=== PATIENT | female | born 1970 | race Caucasian/White ===

== ENCOUNTER → 2023-03-30 15:50 | Outpatient (REF) | payer BC, SELFPAY | LOC: WDC 15:50 | PROVIDERS: ATTENDING PHYSICIAN Obstetrics & Gynecology; FAMILY PHYSICIAN Family Medicine | DX: Z12.31 Encounter for screening mammogram for malignant neoplasm of breast (principal) | CPT/HCPCS: 77063; 77067 ==

== ENCOUNTER 2023-08-19 11:37 | Emergency (ER) | payer BC, SELFPAY ==
[2023-08-19] VITALS (7 sets, daily range): BP systolic 92–113; BP diastolic 66–80
[2023-08-19 12:00] LABS: % Basophils 0.3 % (0-2); % Immature Granulocytes 0.3 % (0-0.5); % Lymphocytes 10.4 % (20.5-51.1); % Monocytes 11.9 % (1.7-9.3); % Neutrophils 77.1 % (42.2-75.2); Absolute Lymphocytes 1.1 10^3/uL (1.2-3.4); Absolute Monocytes 1.2 10^3/uL (0.1-0.6); Absolute Neutrophils 7.9 10^3/uL (1.4-6.5); Hematocrit 37.7 % (37.0-47.0); Hemoglobin 13.5 g/dL (12.0-16.0); Mean Corp Hgb Conc. 35.8 g/dL (33.0-37.0); Mean Corpuscular Hgb 32.4 pg (27.0-31.0); Mean Corpuscular Volume 90.4 fL (81.0-99.0); Mean Platelet Volume 9.4 fL (7.4-10.4); Nucleated Red Blood Cells % 0 %; Platelet Count 253 10^3/uL (130-400); Red Blood Cell Count 4.17 10^6/uL (4.20-5.40); Red Cell Dist. Width 11.8 % (11.5-14.5); White Blood Cell Count 10.2 10^3/uL (4.8-10.8)
[2023-08-19 12:09] LABS: APTT 30.6 Sec (23.4-35.0)
[2023-08-19 12:13] LABS: ALT (SGPT) 24 U/L (0-35); AST (SGOT) 25 U/L (14-36); Albumin 4.2 g/dl (3.5-5.0); Alkaline Phosphatase 106 U/L (38-126); Blood Urea Nitrogen 10 mg/dl (7-17); Calcium 10.2 mg/dl (8.4-10.2); Carbon Dioxide 25 mmol/L (22-30); Chloride 104 mmol/L (98-107); Glucose 149 mg/dl (70-99); Potassium 3.5 mmol/L (3.5-5.1); Sodium 138 mmol/L (135-145); Total Bilirubin 0.4 mg/dl (0.2-1.3); Total Protein 7.3 g/dl (6.3-8.2); eGFR > 60.00
[2023-08-19 12:25] LABS: Troponin I < 0.012 ng/ml
--- NOTE | 2023-08-19 13:19 | ED.GENMED ---
History of Present Illness
<Zabrina Russo PA-C - Last Filed: 08/19/23 18:55>
General
Chief Complaint: Fatigue
Source: patient and spouse
Exam Limitations: none
Time Seen by Provider: 08/19/23 12:59
Nursing documentation reviewed up to this point in time: agreed with
History of Present Illness
History of Present Illness:
Patient is a 53-year-old female with history hypothyroidism presenting to the emergency department for the evaluation of multiple complaints. Patient states that she was sick with COVID, tested positive on 08/09. She states that she was
experiencing headache, sore throat, body aches, fatigue. She started to feel better at this week and tested negative for COVID this past Tuesday. While she was at work on Tuesday however she started to feel extremely fatigued and some mild chest
discomfort. She states that over the past few days she is been very weak, fatigue and been suffering from a headache along with bodyaches. She also endorses pressure in her mid chest worse with deep inspiration. She has not noticed an exertional
component to chest pain.
Patient does deny any fevers or chills, nausea, vomiting, or abdominal pain. Patient states that she has not had a menstrual period in a year, although she has had some very mild spotting over the past few days. She has already called her SENIOR DATA DEVELOPER
to schedule an appointment.
Past History
<Zabrina Russo PA-C - Last Filed: 08/19/23 18:55>
Past History
ED Past Medical History: Asthma and Hypothyroidism
ED Past Surgical History: None
Social History
Tobacco: Non-smoker
Alcohol: Occasional
Personal:
Living: with family
Review of Systems
<Zabrina Russo PA-C - Last Filed: 08/19/23 18:55>
Review of Systems
Allergies reviewed?: Yes
All Other Systems: ROS reviewed and negative except as documented in HPI and ROS
Phy Exam
<Zabrina Russo PA-C - Last Filed: 08/19/23 18:55>
Physical Exam
Physical Exam:
Vitals: Patient's vital signs are stable. Afebrile
General: Patient is mildly uncomfortable appearing due to headache, nontoxic appearing.
Skin: Warm and dry, no rashes or lesions
Head: Normocephalic, atraumatic
Eyes: Sclera nonicteric. EOMs intact. No nystagmus. PERRL
Throat: Posterior pharynx mildly erythematous with no tonsillar edema or exudates. Uvula midline protecting airway
Neck: Normal ROM, no cervical spine tenderness, no meningismus. No midline spinal tenderness
Cardiac: Regular rate and rhythm, no murmurs.
Pulm: Normal respiratory effort. O2 saturation 99 on room air. No evidence of respiratory distress. Lungs clear, no wheezing.
Abdomen: Abdomen soft. No abdominal tenderness.
Extremities: No evidence of cyanosis or edema. Great distal pulses. No erythema, warmth, edema of bilateral calves
Neuro: AAOx3. CN II-XII intact. No focal neurologic deficits.
Psychiatric: Normal affect.
Scores
<Zabrina Russo PA-C - Last Filed: 08/19/23 18:55>
PE Wells Score
Symptoms of DVT: No
No alternative diagnosis better explains the illness: No
Tachycardia with pulse > 100: No
Course
<Zabrina Russo PA-C - Last Filed: 08/19/23 18:55>
Orders/Labs/Results
Orders:
Orders
08/19/23 11:43
Electrocardiogram (*1) Urgent
Reason for Study: Chest Pain
EKG- Treatment ONCE
CR Chest - 2 Views Urgent
Comment:
Reason For Exam: SOB
08/19/23 11:50
Complete Blood Count/With Diff Urgent
Comprehensive Metabolic Panel Urgent
D-Dimer Urgent
Comment: ADD ON
Monotest Urgent
Comment: ADD ON
PTT Urgent
TSH Reflex To Free T4 Urgent
Comment: ADD ON
Troponin I Urgent
08/19/23 13:28
Add On- LAB Urgent
Tests Added?: monospot, d-dimer, tsh w/ reflex to T4
0.9% Sodium Chloride 1000 ml [Nss] 1,000 ml IV BOLUS
Ketorolac [Toradol] 15 mg IV NOW STA
08/19/23 14:12
CT Chest Pe Study Urgent
Comment:
Reason For Exam: chest discomfort, elevated dimer
08/19/23 16:46
Add On- LAB Urgent
Tests Added?: serum hcg
08/19/23 17:07
Amoxicillin 875 mg/Clav 125 mg [Augmentin 875 mg/125 mg] 1 tablet PO NOW STA
Abnormal Lab Results
08/19/23
11:50
RBC 4.17 L 10^6/uL
(4.20-5.40)
MCH 32.4 H pg
(27.0-31.0)
Absolute Neuts (auto) 7.9 H 10^3/uL
(1.4-6.5)
Absolute Lymphs (auto) 1.1 L 10^3/uL
(1.2-3.4)
Absolute Monos (auto) 1.2 H 10^3/uL
(0.1-0.6)
Neutrophils % 77.1 H %
(42.2-75.2)
Lymphocytes % 10.4 L %
(20.5-51.1)
Monocytes % 11.9 H %
(1.7-9.3)
D-Dimer 0.67 H ug/mlFEU
(0.00-0.50)
Glucose 149 H mg/dl
(70-99)
08/19/23 11:50
08/19/23 11:50
Vital Signs
Initial and Last Documented VS:
Initial Vital Signs
Temp Pulse Resp BP Pulse Ox
98.7 F 95 18 113/80 99
08/19/23 11:39 08/19/23 11:39 08/19/23 11:39 08/19/23 11:39 08/19/23 11:39
Last Documented Vital Signs
Temp Pulse Resp BP Pulse Ox
98.2 F 86 14 110/77 100
08/19/23 17:27 08/19/23 17:15 08/19/23 17:15 08/19/23 17:00 08/19/23 17:15
<Albin Nolen, DO - Last Filed: 08/19/23 20:10>
Orders/Labs/Results
Orders:
Orders
08/19/23 11:43
Electrocardiogram (*1) Urgent
Reason for Study: Chest Pain
EKG- Treatment ONCE
CR Chest - 2 Views Urgent
Comment:
Reason For Exam: SOB
08/19/23 11:50
Complete Blood Count/With Diff Urgent
Comprehensive Metabolic Panel Urgent
D-Dimer Urgent
Comment: ADD ON
Monotest Urgent
Comment: ADD ON
PTT Urgent
TSH Reflex To Free T4 Urgent
Comment: ADD ON
Troponin I Urgent
08/19/23 13:28
Add On- LAB Urgent
Tests Added?: monospot, d-dimer, tsh w/ reflex to T4
0.9% Sodium Chloride 1000 ml [Nss] 1,000 ml IV BOLUS
Ketorolac [Toradol] 15 mg IV NOW STA
08/19/23 14:12
CT Chest Pe Study Urgent
Comment:
Reason For Exam: chest discomfort, elevated dimer
08/19/23 16:46
Add On- LAB Urgent
Tests Added?: serum hcg
08/19/23 17:07
Amoxicillin 875 mg/Clav 125 mg [Augmentin 875 mg/125 mg] 1 tablet PO NOW STA
Abnormal Lab Results
08/19/23
11:50
RBC 4.17 L 10^6/uL
(4.20-5.40)
MCH 32.4 H pg
(27.0-31.0)
Absolute Neuts (auto) 7.9 H 10^3/uL
(1.4-6.5)
Absolute Lymphs (auto) 1.1 L 10^3/uL
(1.2-3.4)
Absolute Monos (auto) 1.2 H 10^3/uL
(0.1-0.6)
Neutrophils % 77.1 H %
(42.2-75.2)
Lymphocytes % 10.4 L %
(20.5-51.1)
Monocytes % 11.9 H %
(1.7-9.3)
D-Dimer 0.67 H ug/mlFEU
(0.00-0.50)
Glucose 149 H mg/dl
(70-99)
08/19/23 11:50
08/19/23 11:50
Vital Signs
Initial and Last Documented VS:
Initial Vital Signs
Temp Pulse Resp BP Pulse Ox
98.7 F 95 18 113/80 99
08/19/23 11:39 08/19/23 11:39 08/19/23 11:39 08/19/23 11:39 08/19/23 11:39
Last Documented Vital Signs
Temp Pulse Resp BP Pulse Ox
98.2 F 86 14 110/77 100
08/19/23 17:27 08/19/23 17:15 08/19/23 17:15 08/19/23 17:00 08/19/23 17:15
<Zabrina Russo PA-C - Last Filed: 08/19/23 18:55>
MDM/Problems Addressed
Differential Diagnosis Includes:
Not limited to: Viral illness, mononucleosis, sinusitis migraine, bronchitis, pneumonia, PE
MDM/Problems Addressed:
Patient is a 53-year-old female with recent COVID presenting with lingering headache, body aches, fatigue with associated chest pressure for the past few days. Also does mention vaginal spotting getting yesterday although she reports she has been
without a period for the past year. Vital signs are stable. Patient is afebrile. Physical exam as above. Patient in some discomfort due to headache, although nontoxic-appearing. No meningeal signs. Heart regular rate and rhythm. Lungs
essentially clear bilaterally. Patient is in no apparent respiratory distress with an oxygen saturation of 99 on room air. She is not tachypneic. Labs were obtained which show no clinically significant abnormalities. Hemoglobin is normal chest
x-ray shows no acute cardiopulmonary disease. Will add mono, TSH. Will check D-dimer given recent COVID and pleuritic chest discomfort. Will give Toradol, fluids for headache. Will monitor closely and reassess.
Tyrrell negative. TSH within normal range. Unfortunately�D-dimer was minimally elevated 0.67. Will proceed with CTA chest. Patient is somewhat more improved and sleeping comfortably following Toradol and fluids.
Fortunately CT chest showed no evidence of pulmonary embolism although a mild right lower lobe pneumonia was found. Given persistence of symptoms�will treat with antibiotics. Patient is afebrile with no leukocytosis and in no apparent respiratory
distress�she is fit for outpatient management. Return precautions discussed at length. Patient will follow-up with primary care. Patient has appointment scheduled with SENIOR DATA DEVELOPER.
Chronic conditions affecting care:
N/A
Acute Exacerbation and/or Progression of Chronic Illness:
N/A
<Zabrina Russo PA-C - Last Filed: 08/19/23 18:55>
*Radiology
Radiology exam reviewed: preliminary read by ED provider and radiology read reviewed
*Pulse Oximetry
Patient hypoxic: no
*EKG
Interpreted by ED Provider?: Yes
EKG Intrepretation Date: 08/19/23
Interpretation: normal
Comparison EKG: no changes
Heart Rate: 91
Rate: normal
Rhythm: sinus
QRS Pattern: normal QRS
Ischemia: no ischemia
*Chief Hydroelectric Station Operator Interpretation
Rate: normal
Interpretation: normal
Heart Rate: 84
Rhythm: sinus
*Critical Care Note
Total Time (30-74mins, 75-104mins- exclusive of procedures): Not Applicable
ED Attending Note
<Zabrina Russo PA-C - Last Filed: 08/19/23 18:55>
-
Portions of this chart may have been created with voice recognition software.� Occasional wrong word or��sound alike� substitutions may have occurred due to the inherent limitations of voice recognition software.
<Albin Nolen DO - Last Filed: 08/19/23 20:10>
ED Attending Note
Patient seen and examined by attending physician: Yes
I performed the substantive portion of visit, reviewed & personally made and approve the management plan that is documented in note by myself or TONI.: Yes
ED Attending Note:
53-year-old female who was doing well but started feel more weak and fatigued. Agree with above. CTA negative for pulmonary embolism. Cover with antibiotics. Outpatient follow-up
Discharge Plan
Departure
Patient Disposition: Home (Routine Discharge)
Date of Disposition: 08/19/23
Time of Disposition: 16:58
Patient with high blood pressure during this ER visit?: No
Discharge Problem:
Right lower lobe pneumonia, Headache
Instructions: Community-Acquired Pneumonia, Adult (DC), Headache, Adult ED
Prescriptions:
New
amoxicillin-pot clavulanate 875-125 mg tablet
1 tab PO BID 5 Days Qty: 10 0RF
No Action
cyclobenzaprine 10 MG tablet
5 mg PO TID
levothyroxine 75 MCG tablet
75 mcg PO DAILY
citalopram 20 MG tablet
20 mg PO DAILY
hydrocodone-acetaminophen [Vicodin] 1 EACH tablet
1 ea PO Q6HPRN PRN (Reason: pain)
norethindrone-e.estradiol-iron [Lo Loestrin Fe] 1 EACH tablet
1 ea PO DAILY
prednisone 10 MG tablet
10 mg PO .TAPER Qty: 30 0RF
Rx Instructions:
Take 40mg daily x3days, 30mg daily x3days,
20mg daily x3days, 10mg daily x3days.
diazepam 5 MG tablet
5 mg PO TIDPRN PRN (Reason: spasm) Qty: 9 0RF
ondansetron 4 MG tablet,disintegrating
4 mg PO TIDPRN PRN (Reason: nausea/vomiting) Qty: 8 0RF
Referrals:
Frida Chang NP [Family Provider] -
Activity Restrictions/Additional Instructions:
RETURN TO THE EMERGENCY DEPARTMENT WITH FEVERS, CHILLS, CHEST PAIN, SHORTNESS OF BREATH, SEVERE HEADACHE/NECK PAIN, WORSENING IN CURRENT SYMPTOMS, OR ANY OTHER CONCERNS
-A prescription has been sent to your pharmacy. You should take this twice a day for the next 5 days. It is important stay well-hydrated. You can take Tylenol and/or Motrin as needed for headache. Is very important to monitor your symptoms
closely return to the emergency department with any new symptoms or acute worsening.
-You should follow-up with both your primary care provider and your SENIOR DATA DEVELOPER in about a week to ensure symptoms are improving.
Interventions
Interventions:
*Risk Screen - Suicide Last Done: 08/19/23 11:39
*General Assessment Last Done: 08/19/23 11:39
*Neglect/Abuse Screening Last Done: 08/19/23 11:39
ED- Fall Risk Assessment Last Done: 08/19/23 12:45
*ED COVID-19 Vaccine History Last Done: 08/19/23 12:45
*Nursing Disposition Last Done: 08/19/23 17:28
Discharge Date and Time
Discharge Date/Time: 08/19/23 17:29
Print Language: SLOVAK
[2023-08-19] MEDS: TORADOL 15 MG IV (13:43)
[2023-08-19] MEDS: NSS 1000 IV (13:44)
[2023-08-19 13:55] LABS: D-Dimer 0.67 ug/mlFEU (0.00-0.50)
[2023-08-19 14:50] LABS: Monotest Negative (Negative)
[2023-08-19 15:05] LABS: TSH Reflex To Free T4 1.26 uIU/ml (0.47-4.68)
[2023-08-19] MEDS: AUGMENTIN 875 MG/125 MG 1 TABLET PO (17:12)
== END 2023-08-19 17:29 | disposition home or self-care (01) ==
LOC: EMR 11:37
PROVIDERS: Emergency Medicine; EMERGENCY PHYSICIAN Emergency Medicine; FAMILY PHYSICIAN Nurse Practitioner Family
DX: J18.9 Pneumonia, unspecified organism (principal); R51.9 Headache, unspecified; R53.83 Other fatigue; R07.89 Other chest pain; R53.1 Weakness; N93.9 Abnormal uterine and vaginal bleeding, unspecified; E03.9 Hypothyroidism, unspecified; Z86.16 Personal history of COVID-19
CPT/HCPCS: 99285; 96361; 96374; 71046; 71275; 80053; 84443; 84484; 85025; 85379; 85730; 86308; 93005; Q9967

== ENCOUNTER 2023-08-22 16:07 | Inpatient (IN) | payer BC, SELFPAY ==
[2023-08-22] VITALS (26 sets, daily range): BP systolic 81–123; BP diastolic 50–84
[2023-08-22] MEDS: TYLENOL 650 MG PO ×3 (11:36→23:46)
[2023-08-22 11:45] LABS: % Basophils 0.3 % (0-2); % Eosinophils 0.2 % (0-6); % Immature Granulocytes 0.4 % (0-0.5); % Lymphocytes 8.5 % (20.5-51.1); % Monocytes 9.4 % (1.7-9.3); % Neutrophils 81.2 % (42.2-75.2); Absolute Lymphocytes 0.8 10^3/uL (1.2-3.4); Absolute Monocytes 0.9 10^3/uL (0.1-0.6); Absolute Neutrophils 7.8 10^3/uL (1.4-6.5); Hemoglobin 13.3 g/dL (12.0-16.0); Mean Corp Hgb Conc. 35.9 g/dL (33.0-37.0); Mean Corpuscular Hgb 31.9 pg (27.0-31.0); Mean Corpuscular Volume 88.7 fL (81.0-99.0); Mean Platelet Volume 9.3 fL (7.4-10.4); Nucleated Red Blood Cells % 0 %; Platelet Count 291 10^3/uL (130-400); Red Blood Cell Count 4.17 10^6/uL (4.20-5.40); Red Cell Dist. Width 11.7 % (11.5-14.5); White Blood Cell Count 9.6 10^3/uL (4.8-10.8)
[2023-08-22 11:57] LABS: Lactic Acid 1.1 mmol/L (0.7-2.0)
[2023-08-22 12:17] LABS: ALT (SGPT) 27 U/L (0-35); AST (SGOT) 25 U/L (14-36); Albumin 4.2 g/dl (3.5-5.0); Alkaline Phosphatase 148 U/L (38-126); Blood Urea Nitrogen 8 mg/dl (7-17); Calcium 10.4 mg/dl (8.4-10.2); Carbon Dioxide 23 mmol/L (22-30); Chloride 104 mmol/L (98-107); Potassium 3.9 mmol/L (3.5-5.1); Sodium 138 mmol/L (135-145); Total Bilirubin 0.5 mg/dl (0.2-1.3); Total Protein 7.4 g/dl (6.3-8.2); eGFR > 60.00
[2023-08-22] MEDS: ROCEPHIN 1000 MG IV (12:57)
[2023-08-22] MEDS: DUONEB 3 ML INH (12:57)
[2023-08-22] MEDS: TORADOL 30 MG IV (12:57)
[2023-08-22] MEDS: NSS 2000 IV (12:57)
--- NOTE | 2023-08-22 13:03 | ED.GENMED ---
Addendum entered and electronically signed by Billy Chang DO 08/22/23 14:43:
Update, after 2 L of fluid blood pressure in the 80s to 90s normal mental status cultures have been sent apparently none were sent few days ago when she was here, will give third liter of fluid, consideration for pressors and/or broadening her
antibiotics
Original Note:
History of Present Illness
General
Chief Complaint: Breathing Problem
Source: patient, records and spouse
Exam Limitations: none
Time Seen by Provider: 08/22/23 12:31
Nursing documentation reviewed up to this point in time: agreed with
History of Present Illness
History of Present Illness:
53-year-old female recently seen in the ER with multiple complaints, ultimately diagnosed with pneumonia treated with Augmentin had low-grade fevers at that time took 5 or 6 doses through the weekend she is actually feeling worse fever chills body
aches shortness of breath cough
Whole family had COVID patient initially tested negative then positive but quickly recovered
Past History
Past History
ED Past Medical History: Asthma and Hypothyroidism
ED Past Surgical History: None
Social History
Tobacco: Non-smoker
Alcohol: Occasional
Personal:
Living: with family
Review of Systems
Review of Systems
All Other Systems: ROS reviewed and negative except as documented in HPI and ROS
Constitutional: Reports fever, fatigue and chills
Respiratory: Reports cough and trouble breathing
Cardiac: Reports no symptoms
ABD/GI: Reports no symptoms
: Reports no symptoms
Musculoskeletal: Reports muscle stiffness
Skin: Reports no symptoms
Neurological: Reports dizzy and weakness
Psychiatric: Reports no symptoms
Phy Exam
Physical Exam
Physical Exam:
Physical Exam
General: Febrile female mild to moderate distress
Neck: Dry lips
Heart: Tachycardic
Lungs: Rhonchi left greater than right
Abdomen: Not tender
Neuro: alert and oriented. no focal neurological deficits
Skin: no rash
Psychiatric: well kept. interactive and cooperative
Extremities: no edema. no calf tenderness.
Scores
Heart Failure Risk
Heart Failure Risk Score: Not Applicable
Course
Orders/Labs/Results
Orders:
Orders
08/22/23 11:29
Complete Blood Count/With Diff Urgent
Comprehensive Metabolic Panel Urgent
Lactic Acid Urgent
Blood Culture Urgent
JAZZY Source: Blood/Venous
Specimen Description:
08/22/23 11:31
Blood Culture Urgent
JAZZY Source: Blood/Venous
Specimen Description:
08/22/23 11:34
Acetaminophen [Tylenol] 650 mg .ROUTE .STK-MED ONE
08/22/23 11:36
Acetaminophen [Tylenol] 650 mg PO NOW STA
08/22/23 11:40
CR Chest - 2 Views Urgent
Comment:
Reason For Exam: sob fever
08/22/23 12:39
CefTRIAXone [Rocephin] 1,000 mg IV NOW STA
Ketorolac [Toradol] 30 mg IV NOW STA
08/22/23 12:40
0.9% Sodium Chloride 1000 ml [Nss] 2,000 ml IV BOLUS
08/22/23 12:41
Ipratropium/Albuterol Sulfate [Duoneb] 3 ml INH R NOW STA
08/22/23 12:49
Sterile Water [Sterile Water For Injection] 10 ml .ROUTE .STK-MED ONE
08/22/23 12:51
Sterile Water [Sterile Water For Injection] 10 ml .ROUTE .STK-MED ONE
08/22/23 12:55
COVID-19 Antigen Urgent
Source: Nasal Swab
Influenza A+B Rapid Molecular Urgent
JAZZY Source: Nasal Swab
Specimen Description:
08/22/23 13:08
Electrocardiogram (*1) Urgent
Reason for Study: Shortness of Breath
EKG- Treatment ONCE
Abnormal Lab Results
08/22/23
11:29
RBC 4.17 L 10^6/uL
(4.20-5.40)
MCH 31.9 H pg
(27.0-31.0)
Absolute Neuts (auto) 7.8 H 10^3/uL
(1.4-6.5)
Absolute Lymphs (auto) 0.8 L 10^3/uL
(1.2-3.4)
Absolute Monos (auto) 0.9 H 10^3/uL
(0.1-0.6)
Neutrophils % 81.2 H %
(42.2-75.2)
Lymphocytes % 8.5 L %
(20.5-51.1)
Monocytes % 9.4 H %
(1.7-9.3)
Glucose 112 H mg/dl
(70-99)
Calcium 10.4 H mg/dl
(8.4-10.2)
Alkaline Phosphatase 148 H U/L
(38-126)
08/22/23 11:29
08/22/23 11:29
Vital Signs
Initial and Last Documented VS:
Initial Vital Signs
Temp Pulse Resp BP Pulse Ox
102.9 F H 107 22 103/68 99
08/22/23 10:28 08/22/23 10:28 08/22/23 10:08/22/23 10:08/22/23 10:28
Last Documented Vital Signs
Temp Pulse Resp BP Pulse Ox
100.7 F H 107 22 103/68 98
08/22/23 12:28 08/22/23 10:28 08/22/23 10:08/22/23 10:08/22/23 11:26
MDM/Problems Addressed
Differential Diagnosis Includes:
Pneumonia bacteremia viral syndrome UTI conceivably PE rule out
MDM/Problems Addressed:
Fatigue fever chills cough
Chronic conditions affecting care:
Recent pneumonia
Acute Exacerbation and/or Progression of Chronic Illness:
Pneumonia
*Radiology
Radiology exam reviewed: radiology read reviewed
*Pulse Oximetry
Patient hypoxic: no
*EKG
Interpreted by ED Provider?: Yes
Interpretation: abnormal
Comparison EKG: no comparison EKG present
Heart Rate: 78
Rate: tachycardiac
Rhythm: sinus
Ischemia: non-specific ST changes
*Critical Care Note
Total Time (30-74mins, 75-104mins- exclusive of procedures): Not Applicable
Update Note
Update Note:
Update patient feeling worse despite 5 or 6 doses of Augmentin, prior note reviewed prior imaging reviewed, repeat chest x-ray noted labs noted patient states she is feeling much worse will start on antipyretics nebs start IV Rocephin check blood
cultures patient states she feels too ill to go home prefers to be admitted
ED Attending Note
-
Portions of this chart may have been created with voice recognition software.� Occasional wrong word or��sound alike� substitutions may have occurred due to the inherent limitations of voice recognition software.
Discharge Plan
Departure
Patient Disposition: Admit
Date of Disposition: 08/22/23
Time of Disposition: 13:12
Admit to: Med/Surg and Telemetry
Presentation/result/management discussed w/ accepting MD/DO: Hospitalist
Condition: Fair
Covid-19: Not Applicable
Discharge Problem:
Pneumonia
Prescriptions:
No Action
amoxicillin-pot clavulanate 875-125 mg tablet
1 tab PO BID 5 Days Qty: 10 0RF
Patient Comments:
08/22/2023, filled on 08/19/2023 and instructed to take one tablet BID for 5 days; pt. has taken 5 pills so far per pt.
acetaminophen [Tylenol Extra Strength] 500 mg Tablet
1,000 mg PO Q6H PRN (Reason: mild pain)
levothyroxine 75 mcg Tablet
75 mcg PO DAILY
ascorbic acid (vitamin C) [Vitamin C] 250 mg Tablet
500 mg PO DAILY
ibuprofen [Motrin IB] 200 mg Tablet
400 mg PO TIDPRN PRN (Reason: mild pain)
escitalopram oxalate 10 mg Tablet
10 mg PO DAILY
Hair, Skin and Nails (biotin) 10,000 mcg Tablet,Chewable
20,000 mcg PO DAILY
Colace
4 gummy PO DAILYPRN PRN (Reason: constipation)
Immune Health Supplement tablet
1 tab PO DAILYPRN PRN (Reason: supplement)
Patient Comments:
08/22/2023, pt. states that there is 1 gram of vitamin C, some zinc, and other vitamins in this supplement.
Metamucil capsule
2 cap PO DAILYPRN PRN (Reason: constipation)
Women's Multivitamin Gummies
2 gummy PO DAILY
Referrals:
UNKNOWN - PT DOES,NOT KNOW [Family Provider] -
Interventions
Interventions:
*Risk Screen - Suicide Last Done: 08/22/23 10:28
*General Assessment Last Done: 08/22/23 10:28
*Neglect/Abuse Screening Last Done: 08/22/23 10:28
*ED COVID-19 Vaccine History Last Done: 08/22/23 11:27
ED- Cardiac Assessment Last Done: 08/22/23 11:26
ED- Pulmonary Assessment Last Done: 08/22/23 11:26
Discharge Date and Time
Print Language: [id number]
[2023-08-22 13:31] LABS: COVID-19 Antigen Negative (Negative)
[2023-08-22] MEDS: NSS 1000 IV (14:37)
--- NOTE | 2023-08-22 15:45 | CON.INTV ---
Consultation
Consultation Request
Date/Time Consultation Requested: 08/21
Date/Time Consultation Performed: 08/21
Reason for Consultation: Hypotension, critical care
Medical History
-
History of Present Illness:
History obtained from the chart, also reviewed outpatient records. Patient is a 53-year-old female with moderate alcohol use, history dates back to 08/09 when she had a positive Covid test. She stated that multiple family members had COVID at that
time. Symptoms were mild sore throat, postnasal drip. Although symptoms somewhat improved, she did not require any therapy, she had persistent fatigue, lack of energy which prompted primary care visit 08/18. Interestingly, she saw her primary for
the first time 08/08 (1 day before her positive COVID test). She developed worsening pleuritic pain, palpitations. She has had persistent lightheadedness/dizziness. She was evaluated in the ED 08/18, had a CT chest which ruled out PE. However,
right lower lobe pneumonia was identified, started on Augmentin therapy. Patient had persistent fevers to 101, pleurisy and was recommended come back to the ED. Upon arrival to ED, temperature 102.9, pulse 107, breathing at 22, blood pressure
103/68, 99% saturation. Patient was given IV fluids, IV ceftriaxone. She then subsequently developed hypotension requiring IV fluid boluses. She also received acetaminophen to bring down her temperature. Because of persistent hypotension, we are
asked to help from critical care standpoint
She had 1 episode of emesis last week. She states she has been able to eat and drink, in fact states that her urine was 'clear' yesterday because she drank about a liter of water. She denies diarrhea, abdominal pain. She admits to drinking at
least 3 glasses of wine a day chronically.
She had not had her menses for 11 months and had some vaginal bleeding over the last few days which she thought was unusual. Denies any recent medication changes or hormone therapy
.
PMH: History of hypothyroidism. History of anxiety. She has history of walking pneumonia in the third decade, was also hospitalized as a child for pneumonia. She had Covid infection 2020 and again July 2023. She states she was vaccinated in the
interim.
Past Medical History
Past Medical History: None (See above)
Past Surgical History: None (See above)
Social History
Tobacco: Non-smoker
Alcohol: Daily (3 glasses of wine a day)
Drug: None
Personal:
Living: With Family
Employment: Not Employed
Family History
Family History: Other (1 sister from non-Hodgkin's lymphoma. Another sister with rheumatoid arthritis. Children are healthy. Family history negative for blood clots, lung cancer)
Allergies / Home Medications
Allergies
Allergy/AdvReac Type Severity Reaction Status Date / Time
NKA - No Known Allergies Allergy Unknown Uncoded 08/22/23 10:27
Home Medications
�Medication �Instructions �Recorded �Confirmed �Last Taken �Type
amoxicillin 875 mg-potassium 1 tab PO BID 5 days #10 tabs 08/19/23 08/22/23 08/21/23 Rx
clavulanate 125 mg tablet
Colace 4 gummy PO DAILYPRN PRN 08/22/23 08/22/23 08/21/23 History
constipation
Immune Health Supplement 1 tab PO DAILYPRN PRN supplement 08/22/23 08/22/23 2 Days Ago History
~08/20/23
Metamucil 2 cap PO DAILYPRN PRN constipation 08/22/23 08/22/23 08/21/23 History
Women's Multivitamin Gummies 2 gummy PO DAILY 08/22/23 08/22/23 1 Week Ago History
~08/15/23
acetaminophen 500 mg tablet 1,000 mg PO Q6H PRN mild pain 08/22/23 08/22/23 08/22/23 History
(Tylenol Extra Strength)
ascorbic acid (vitamin C) 250 mg 500 mg PO DAILY 08/22/23 08/22/23 1 Week Ago History
tablet (Vitamin C) ~08/15/23
biotin 10,000 mcg chewable tablet 20,000 mcg PO DAILY 08/22/23 08/22/23 1 Week Ago History
(Hair, Skin and Nails (biotin)) ~08/15/23
escitalopram oxalate 10 mg tablet 10 mg PO DAILY 08/22/23 08/22/23 1 Day Ago History
~08/21/23
ibuprofen 200 mg tablet (Motrin IB) 400 mg PO TIDPRN PRN mild pain 08/22/23 08/22/23 08/21/23 History
levothyroxine 75 mcg tablet 75 mcg PO DAILY 08/22/23 08/22/23 1 Day Ago History
~08/21/23
Review of Systems
-
All other systems: Negative unless noted
Vitals / Labs / Diagnostic Testing
Vital Signs
Temp Pulse Resp BP Pulse Ox
100.7 F H 106 18 90/55 97
08/22/23 12:28 08/22/23 14:35 08/22/23 14:35 08/22/23 14:34 08/22/23 14:35
Lab Data
08/22/23 11:29
08/22/23 11:29
Microbiology
08/22/23 12:55 Nasal Swab Influenza Types A & B (LINETTE) - Final
Negative for Influenza A & B, NAAT
Negative results must be combined with clinical observations
and patient history.
Nucleic Acid Amplification test (NAAT)performed on the
[employer] platform.
Diagnostic Testing:
Physical Exam
-
HEENT: Normocephalic and Anicteric
Cardiovascular: S1/S2, Regular Rhythm (Tachycardic), Murmur (n) and Rub (n)
Respiratory: Wheeze (n), Rales (Right basilar posterior), Rhonchi (n), Non-Labored Respirations and Other (Cough spasms with deep breathing)
GI: Soft, Non Distended and Tender (Mild right upper quadrant tenderness, no rebound or guarding)
Neurology: Awake, Alert, Oriented and No Motor Deficits (Moves all extremities)
Skin: Good Color and Other (No skin rash, extremities warm)
General: Comfortable (Seems anxious and agitated)
Assessment
-
53-year-old female with recent COVID 08/09, persistent pleurisy, fatigue, malaise had ED visit 08/[address] angiogram. Right lower lobe pneumonia identified, started on Augmentin. Persistent fevers to 102.9, found to be hypotensive. Given
ceftriaxone, started on IV fluids. Patient admitted to ICU due to persistent hypotension
Hypotension, suspected secondary to sepsis
Right lower lobe pneumonia
Crackles on exam
Recent COVID 08/10/2023
Tachycardia
Mild hypercalcemia
Presyncopal symptoms
Nonspecific abdominal pain, waxing and waning over the last few months
Conditions present prior to admission
Hypothyroidism
Anxiety disorder
History of walking pneumonia third decade
Chronic rhinitis
History of sinus infections
Moderate alcohol use
2 to 3 glasses of wine a day
Plan/recommendations
At this time, patient subjectively is improved, however still with marginal blood pressure
Extremities are warm, pulses are intact
Capillary refill adequate, less than 3 seconds
Most recent blood pressure systolic pressure in the 100s
Crackles noted right base
Although patient had 1 episode of emesis, she describes regular hydration over the last week and adequate p.o.
Moving forward
Continue with empiric antibiotics for community-acquired pneumonia. Recent ED visit noted
Zosyn/vancomycin continues
May be secondary bacterial infection after recent viral infection. Crackles on exam noted at the right base
Incentive spirometry as able
Blood cultures pending
Influenza and COVID-negative
Differential also includes pericardial disease, cardiomyopathy given recent viral illness
Check echocardiogram
Check lower extremity Dopplers
Right upper quadrant pain noted on exam
Patient describes no menses for 11 months and had episode over the last week. This is not unusual with menopause but will follow especially given abdominal discomfort
Patient states she saw her primary (ropec) before residential and was noted to have abdominal pain at that time on exam
Patient denies any weight loss
She describes chronic constipation
Check right upper quadrant ultrasound
Check lipase
Alcohol use noted
Continue with IV fluids
Empirically start thiamine/folate
Follow
Reviewed with the ED staff, primary service
Will follow
TCCT 35 min
[2023-08-22] MEDS: VANCOCIN 540 MG IV (15:54)
--- NOTE | 2023-08-22 16:09 | HPS.HSE ---
Family Physician
-
Family Physician: [facility]
Chief Complaint
-
Cough, fever, body aches
History of Present Illness
Patient is a 53-year-old female who tested positive for COVID on August 10, 2023. She felt better from her COVID symptoms within 2 days; however, patient felt significantly fatigued since that time. She developed fevers and chills starting Tuesday
evening prior to admission and then spent all day in bed. She states that it hurts to breathe, her head hurts, she has chest pains. She also complains of a dry cough. She was seen by her primary care physician on Tuesday morning and was
sent to the emergency department for evaluation and treatment. Workup at that time found her to have a right lower lobe pneumonia and the patient was placed on Augmentin therapy. She stated that she took 5 pills of her course but did not feel any
better. She went back to them today for follow-up and they referred her to the emergency department.
Workup in the emergency department finds her to be febrile with hypotension requiring at least 3 L of IV fluids and chest x-ray consistent with a right lower lobe pneumonia (appears no change from prior despite difference in modalities). Patient is
being admitted to the intensive care unit.
Medical History
Past Medical History
Past Medical History: Reports Other
Additional Past Medical History:
Hypothyroidism
Anxiety
Low blood pressures
Low sugars
Past Surgical History: Reports Other
Additional Past Surgical History:
Sinus surgery in 2020
Scar tissue surgery from childbirth
Social History
Tobacco: Non-smoker
Alcohol: Daily
Drug: None
Personal:
Living: With Family
Family History
Family History: Other (Type 2 diabetes)
Allergies / Home Medications
Allergies reflects when Allergies were last updated in [employer].
Home Medications with original date entered in [employer]
Allergy/Medication List:
Allergies
Allergy/AdvReac Type Severity Reaction Status Date / Time
NKA - No Known Allergies Allergy Unknown Uncoded 08/22/23 10:27
Home Medications
amoxicillin 875 mg-potassium clavulanate 125 mg tablet 1 tab PO BID 5 days #10 tabs 08/19/23
Colace 4 gummy PO DAILYPRN PRN constipation 08/22/23
Immune Health Supplement 1 tab PO DAILYPRN PRN supplement 08/22/23
Metamucil 2 cap PO DAILYPRN PRN constipation 08/22/23
Women's Multivitamin Gummies 2 gummy PO DAILY 08/22/23
acetaminophen 500 mg tablet (Tylenol Extra Strength) 1,000 mg PO Q6H PRN mild pain 08/22/23
ascorbic acid (vitamin C) 250 mg tablet (Vitamin C) 500 mg PO DAILY 08/22/23
biotin 10,000 mcg chewable tablet (Hair, Skin and Nails (biotin)) 20,000 mcg PO DAILY 08/22/23
escitalopram oxalate 10 mg tablet 10 mg PO DAILY 08/22/23
ibuprofen 200 mg tablet (Motrin IB) 400 mg PO TIDPRN PRN mild pain 08/22/23
levothyroxine 75 mcg tablet 75 mcg PO DAILY 08/22/23
Review of Systems
-
History Source: Patient
A 12 point ROS was completed and negative except as noted: Yes
Constitutional: Reports Fever and Chills
EENT: Reports No Symptoms
Respiratory: Reports Cough and Trouble Breathing
Cardiac: Reports Chest Pain and Palpitations (Patient feels her heart is racing after albuterol treatment)
Abdomen/GI: Reports Abdominal Pain and Constipated; Denies Nausea, Vomiting or Diarrhea
: Reports No Symptoms; Denies Dysuria or Frequency
Musculoskeletal: Reports Other (Myalgias and arthralgias)
Skin: Denies Rash
Neurological: Reports Headache and Weakness
Endocrine: Reports No Symptoms
Hematologic/Lymphatic: Reports No Symptoms
Psych: Reports No Symptoms
Physical Exam
Vital Signs
Vital Signs
Temp Pulse Resp BP Pulse Ox
100.7 F H 106 18 90/55 97
08/22/23 12:28 08/22/23 14:35 08/22/23 14:35 08/22/23 14:34 08/22/23 14:35
Physical Exam
General: Well Developed and Well Nourished; No No Apparent Distress (Appears ill, jittery)
HEENT: NormoCephalic, Anicteric and Atraumatic; No Oxygen
Respiratory: Rhonchi (Right lower lobe)
Cardiac: S1/S2, Regular Rhythm and Tachycardia
GI: Soft, Non Distended and Tender (Right upper quadrant and midepigastric area with guarding); No Normal Bowel Sounds (Hypoactive)
Musculoskeletal: No Clubbing, No Cyanosis and No Edema
Skin: Warm and Dry; No Rash
Neuro: Awake and Alert
Psych: Anxious (Jittery)
Laboratory Results
-
08/22/23 11:29
08/22/23 11:29
Laboratory Results
Lactic Acid 1.1 mmol/L (0.7-2.0) 08/22/23 11:29
Total Bilirubin 0.5 mg/dl (0.2-1.3) 08/22/23 11:29
AST 25 U/L (14-36) 08/22/23 11:29
ALT 27 U/L (0-35) 08/22/23 11:29
Alkaline Phosphatase 148 U/L (38-126) H 08/22/23 11:29
Impression/Plan
-
Patient is a 53-year-old female
Septic shock (early)--patient required 3 L of normal saline IV fluid with marginal blood pressures of 90s/50s after 3 L--etiology could be persistent right lower lobe infiltrate/, gallbladder disease with right upper quadrant pain, intra-abdominal
issues as leading theories--despite having pneumonia, patient is not hypoxic--ADMIT to ICU--Levophed ordered for blood pressure support, continue lactated Ringer's IV fluids, consult popcorn candy maker, consideration for ID consult, await culture results--
repeat COVID is negative--start vancomycin/Zosyn for broad-spectrum coverage--check CT scan of the abdomen and pelvis--with viral illness, echocardiogram and lower extremity Dopplers are ordered
Alcohol use--patient drinks 2 to 3 glasses of wine per night--will start MSAS protocol--continue thiamine and folic acid
Hypothyroidism--continue levothyroxine
DVT prophylaxis--Lovenox
CODE STATUS--full code
[2023-08-22 16:34] LABS: Glucose 112 mg/dl (70-99); Lipase 81 U/L (23-300)
--- NOTE | 2023-08-22 17:03 | PHA.VAN.IN ---
Assessment
- Assessment
Renal Function: Appears similar to baseline
Concomitant Antimicrobials: ZOSYN
- Previous Dosing Experience
Previous Regimen: NONE
AUC Dosing Plan
- Dosing Variables
Dosing Weight (kg): 69.3
Dosing CrCl (ml/min): 98
Vd coefficient (L/kg): 0.7
- Empiric Dosing
Initial / Loading Dose: 2GM
Maintenance Regimen: 1GM IV Q12H
Estimated AUC (mcg*h/mL): 521
Estimated Peak (mcg*h/mL): 32.1
Estimated Trough (mcg/ml): 12.5
Estimated Half Life (H): 8.1
Pharmacokinetics Vancomycin I
- -
Patient Age: 53
Patient Sex: Female
Vancomycin Day #: 1
Indication: Pulmonary/Respiratory (SEPTIC SHOCK )
Requesting Provider: MIMI
Height / Weight:
Height 5 ft 5 in
Actual Weight 69.3 kg
Pertinent Past Medical History: RECENT COVID
- Vital Signs / Lab Results
Temp Pulse Resp BP Pulse Ox
99.5 F 104 14 93/57 98
08/22/23 16:57 08/22/23 16:00 08/22/23 16:00 08/22/23 16:00 08/22/23 16:00
Lab Results - Hematology
08/22/23
11:29
WBC 9.6
Lab Results - Chemistry
08/22/23
11:29
BUN 8
Creatinine 0.6
Albumin 4.2
08/22/23
11:29
Lactic Acid 1.1
Microbiology Results
08/22/23 12:55 Influenza Types A & B (LINETTE) - Final
Nasal Swab Negative for Influenza A & B, NAAT
Negative results must be combined with clinical observations
and patient history.
Nucleic Acid Amplification test (NAAT)performed on the
[employer] platform.
--- NOTE | 2023-08-22 18:34 | PTCARENOTE ---
arrived to ICU approx 1800, rigors, extremely anxious, insisting she wants to be left alone and stating 'I'm going to pass out'. family bedside, support given, understands plan of care. Rom infusing, T noted, fluids initiated as ordered. skin
diaphoretic, flushed, warm. admission completed with and some patient input. Call han in reach.
[2023-08-22] MEDS: LR 1000 IV (18:40)
[2023-08-22] MEDS: LOVENOX 40 MG SC (18:40)
--- NOTE | 2023-08-22 18:56 | PTCARENOTE ---
family reports alcohol use is usually 2-3 day, pt reports rarely 4, not more than 4. Last drink per both pt and was last wednesday 08/16.
--- NOTE | 2023-08-22 19:00 | PTCARENOTE ---
msas score is 5, pt has high fever from PNA, is tachy from temp, calm, oriented, refuses ativan
[2023-08-22] MEDS: ZOSYN 100 IV (19:30)
[2023-08-22 19:36] LABS: Urine Albumin Negative (Neg - Trace); Urine Bilirubin Negative (Negative); Urine Character Clear (Clear); Urine Color Yellow; Urine Glucose Negative (Negative); Urine Ketone Negative (Negative); Urine Leukocyte Negative (Negative); Urine Nitrite Negative (Negative); Urine Occult Blood Trace (Negative); Urine Urobilinogen Negative (Neg - 1+)
[2023-08-22] MEDS: TORADOL 15 MG IV (19:42)
[2023-08-22] MEDS: THIAMINE INJECTION 200 MG IV (19:42)
[2023-08-22 19:45] LABS: INR 1.27; PT 15.7 Sec (11.4-14.6)
[2023-08-22 19:46] LABS: APTT 47.8 Sec (23.4-35.0)
[2023-08-22 19:54] LABS: Urine Bacteria Few (Negative); Urine Red Blood Cell 0-2 /HPF (0-2); Urine White Cell 0-2 /HPF (0-5)
--- NOTE | 2023-08-22 20:00 | PTCARENOTE ---
Rec'd pt resting in bed, amb to bathroom w/o difficulty to void & then back to bed, c/o headache- toradol 15mg iv given, cooperative, anxious abour hospitalization , support given, all questions answered,Temp 100.7. ST, + pulses, no edema, skin
warm/dry, RA, lungs w/ crackles RLL, sat 95, occas NPC, + bowel sounds, no bm, c/o abd tenderness, no n/v, robyn clear liquids, voided yellow urine w/o difficulty
[2023-08-22 20:09] LABS: Amphetamines Negative (Negative); Barbiturates Negative (Negative); Benzodiazepines Negative (Negative); Buprenorphine Negative (Negative); Cocaine Negative (Negative); Marijuana Negative (Negative); Methadone Negative (Negative); Methamphetamines Negative (Negative); Opiates Negative (Negative); Phencyclidine Negative (Negative); Tricyclic Antidepressants Negative (Negative)
[2023-08-22 20:18] LABS: GGTP 55 U/L (12-43); Magnesium 1.7 mg/dl (1.6-2.3); Phosphorus 1.9 mg/dl (2.5-4.5)
[2023-08-22 20:22] LABS: Alcohol None Detected
[2023-08-22 20:25] LABS: B-Hydroxybutyrate 0.06 mmol/L (0.02-0.27)
[2023-08-22] MEDS: NEUTRA-PHOS POWDER PACKET 250 MG PO (21:20)
--- NOTE | 2023-08-22 21:21 | PTCARENOTE ---
neutra phos 250 po given per order
--- NOTE | 2023-08-22 23:48 | PTCARENOTE ---
sys reviewed, having 'shaking chills', temp 100.8- tylenol 650 mg po given
[2023-08-23] VITALS (22 sets, daily range): BP systolic 91–124; BP diastolic 54–82; BMI 25.1
[2023-08-23] MEDS: ZOSYN 100 IV ×2 (00:21→05:20)
[2023-08-23] MEDS: LR 1000 IV ×2 (02:25→10:06)
[2023-08-23] MEDS: TORADOL 15 MG IV ×3 (03:21→16:04)
--- NOTE | 2023-08-23 03:24 | PTCARENOTE ---
sys reviewed, pt w/ body aches/ headache, temp 103, toradol 15mg iv given
[2023-08-23 03:30] LABS: Hematocrit 30.9 % (37.0-47.0); Hemoglobin 10.9 g/dL (12.0-16.0); Mean Corp Hgb Conc. 35.3 g/dL (33.0-37.0); Mean Corpuscular Hgb 32.2 pg (27.0-31.0); Mean Corpuscular Volume 91.4 fL (81.0-99.0); Mean Platelet Volume 9.6 fL (7.4-10.4); Platelet Count 203 10^3/uL (130-400); Red Blood Cell Count 3.38 10^6/uL (4.20-5.40); Red Cell Dist. Width 11.6 % (11.5-14.5)
[2023-08-23 04:02] LABS: ALT (SGPT) 19 U/L (0-35); AST (SGOT) 23 U/L (14-36); Albumin 2.8 g/dl (3.5-5.0); Alkaline Phosphatase 108 U/L (38-126); Blood Urea Nitrogen 4 mg/dl (7-17); Calcium 8.6 mg/dl (8.4-10.2); Carbon Dioxide 22 mmol/L (22-30); Chloride 110 mmol/L (98-107); Estimated Creatinine Clearance 98 ml/min; Glucose 104 mg/dl (70-99); Potassium 3.6 mmol/L (3.5-5.1); Sodium 136 mmol/L (135-145); Total Bilirubin 0.6 mg/dl (0.2-1.3); Total Protein 5.4 g/dl (6.3-8.2); eGFR > 60.00
[2023-08-23] MEDS: TYLENOL 650 MG PO ×5 (04:16→23:41)
[2023-08-23] MEDS: SYNTHROID 75 MCG PO (04:16)
--- NOTE | 2023-08-23 04:21 | PTCARENOTE ---
Temp 101.9, has generalized body aches, Constantino Jackson Np aware, tylenol 650 mg po given
--- NOTE | 2023-08-23 05:34 | PTCARENOTE ---
sat dropped to 89% while sleeping, 2 liters nc applied, sat 95
[2023-08-23] MEDS: VANCOCIN 200 IV (05:47)
--- NOTE | 2023-08-23 07:18 | W.PN.INTV ---
Addendum entered and electronically signed by Rizwana Espinosa MD 08/23/23 14:06:
Patient transferred out of ICU. Pulmonary will continue to follow briefly
Patient will require follow-up CT chest in 3 months to confirm resolution, with possible pulmonary follow-up
Original Note:
Today's Communication / Plan
Recommendations
Replete electrolytes
Incentive spirometry, out of bed to chair, ambulate
Decrease IV fluids
Discontinue PPI
Continue antibiotics. ID consult pending
Doppler, echo and abdominal ultrasound pending
Assessment
-
53-year-old female with recent COVID 08/09, persistent pleurisy, fatigue, malaise had ED visit 08/[address] angiogram. Right lower lobe pneumonia identified, started on Augmentin. Persistent fevers to 102.9, found to be hypotensive. Given
ceftriaxone, started on IV fluids. Patient admitted to ICU due to persistent hypotension
Hypotension, suspected secondary to sepsis
Improved following fluids
Right lower lobe pneumonia
Crackles on exam
Recent COVID 08/10/2023
Tachycardia
Anemia, likely dilutional
Mild hypercalcemia
Presyncopal symptoms
Nonspecific abdominal pain, waxing and waning over the last few months
Normal abdominal CT imaging
Conditions present prior to admission
Hypothyroidism
Anxiety disorder
History of walking pneumonia third decade
Chronic rhinitis
History of sinus infections
Moderate alcohol use
2 to 3 glasses of wine a day
Plan/recommendations
At this time, patient subjectively is improved, less splinting on exam, able to take deeper breaths
Less shortness of breath
Extremities are warm, pulses are intact
Has not required pressors
Most recent blood pressure systolic pressure in the 100s
Crackles improved, mild egophony noted
Positive fluid status noted
Moving forward
Continue with empiric antibiotics for community-acquired pneumonia. Recent ED visit noted
Zosyn/vancomycin continues
May be secondary bacterial infection after recent viral infection. Crackles on exam noted at the right base, improved
Abdominal imaging does suggest more consolidation than recent CT chest
Blood cultures pending
Influenza and COVID-negative
Follow fever curve, continue with Tylenol
Differential also includes pericardial disease, cardiomyopathy given recent viral illness
Echocardiogram pending
Dopplers pending given recent COVID illness and persistent fevers
Right upper quadrant pain noted on exam, improved
Abdominal CT without acute findings
Patient describes no menses for 11 months and had episode over the last week.
Patient denies any weight loss
She describes chronic constipation
Lipase normal abdominal ultrasound pending
Alcohol use noted
Continue with IV fluids
Advance diet
Empirically start thiamine/folate
Follow-up for withdrawal electrolyte abnormalities noted. Replete
Magnesium, potassium and phosphorus
Reviewed with the primary service, critical care nursing, respiratory care
For transfer out of ICU. Pulmonary will continue to follow
Subjective Dataa
Subjective Data
Date of Service:
Date of Service: August 23, 2023
Subjective:
Overall, patient is feeling better. She is tremulous at times, agitated but appears to be less so. Fevers through the night noted. Denies nausea, abdominal pain has improved
Objective Data
Data Reviewed
Vital Signs / I&O / Oxygen:
Vital Signs
Temp Pulse Resp BP Pulse Ox
99.7 F 91 13 102/70 96
08/23/23 07:08 08/23/23 06:00 08/23/23 06:00 08/23/23 06:00 08/23/23 06:00
Intake and Output
08/22/23 08/23/23 08/24/23
06:59 06:59 06:59
Intake Total 2300 / 2300
Output Total 1700 / 1700
Balance 600 / 600
SaO2 96
Nasal Cannula flow liters per 2
minute
Physical Exam
General: Comfortable
HEENT: Normocephalic and Anicteric
Cardiovascular: S1-S2, Regular Rhythm, Murmur (n) and Rub (n)
Respiratory: Wheeze (n), Crackles (n), Rhonchi (n), Non-Labored Respirations, Egophony (Mild right base) and Other (Coughing with deep breathing)
GI: Soft, Non Distended and Non Tender
Neurology: Awake, Alert, Oriented and No Motor Deficits (Able to sit up without assistance)
Skin: Good Color, Cyanosis (n), Jaundice (n) and Rash (n)
Labs/Micro/Reports
Lab Data
08/23/23 03:17
08/23/23 03:17
Laboratory Results
08/22/23
19:24
PT 15.7 H
INR 1.27
APTT 47.8 H
Microbiology
08/22/23 12:55 Nasal Swab Influenza Types A & B (LINETTE) - Final
Negative for Influenza A & B, NAAT
Negative results must be combined with clinical observations
and patient history.
Nucleic Acid Amplification test (NAAT)performed on the
[employer] platform.
--- NOTE | 2023-08-23 08:17 | PHA.VAN.FU ---
Vancomycin Assessment / Plan
- Assessment
Renal Function: Stable
WBC's are: WNL
In the past 24 hrs, patient has been: Febrile
Concomitant Antimicrobials: Piperacillin/Tazobactam
- Dosing Plan
Continue: 1000mg Q12H
- Monitoring Plan
No level(s) ordered at this time: Consider levels on 08/24/23 evening
- Follow Up
Pharmacy will continue to follow.
Vancomycin Follow UP
- -
Patient Age: 53
Patient Sex: Female
Vancomycin Day #: 2
Indication: Pulmonary/Respiratory (SEPTIC SHOCK )
Requesting Provider: Romeo LE
Height / Weight:
Height 5 ft 5 in
Actual Weight 68.4 kg
Pertinent Past Medical History: RECENT COVID
- Vital Signs / Lab Results
Temp Pulse Resp BP Pulse Ox
99.7 F 91 13 102/70 96
08/23/23 07:08 08/23/23 06:00 08/23/23 06:00 08/23/23 06:00 08/23/23 06:00
Lab Results - Hematology
08/22/23 08/23/23
11:29 03:17
WBC 9.6 9.0
Lab Results - Chemistry
08/22/23 08/23/23
11:29 03:17
BUN 8 4 L
Creatinine 0.6 0.6
Estimated Creat Clear 98
Albumin 4.2 2.8 L
08/22/23 08/22/23 08/22/23
11:29 18:07 22:07
Lactic Acid 1.1 Cancelled Cancelled
Lab Results - Urine
08/22/23
19:24
Urine Nitrite Negative
Ur Leukocyte Esterase Negative
Urine WBC 0-2
Ur Squamous Epith Cells 6-10
Urine Bacteria Few A
Microbiology Results
08/22/23 12:55 Influenza Types A & B (LINETTE) - Final
Nasal Swab Negative for Influenza A & B, NAAT
Negative results must be combined with clinical observations
and patient history.
Nucleic Acid Amplification test (NAAT)performed on the
[employer] platform.
[2023-08-23] MEDS: THIAMINE INJECTION 200 MG IV ×2 (08:48→19:57)
[2023-08-23] MEDS: ROBITUSSIN 200 MG PO ×2 (08:49→18:34)
[2023-08-23] MEDS: LEXAPRO 10 MG PO (08:49)
[2023-08-23] MEDS: NSS (PRESERVATIVE FREE) 10 ML IV (08:49)
[2023-08-23] MEDS: PROTONIX IV 40 MG IV (08:49)
[2023-08-23] MEDS: FOLVITE 1 MG PO (08:50)
--- NOTE | 2023-08-23 09:09 | W.PN.HOSP.TC ---
Addendum entered and electronically signed by Penelope Hernandez MD 08/23/23 13:07:
I saw and evaluated the patient independently. I reviewed the resident�s note and agree with findings and plan as documented by Dr. Hutson.
GENERAL: well developed, well nourished, female who cannot lie still on the bed
HEENT: NC/AT
HEART: regular rate and rhythm, +S1, +S2, tachycardic
LUNGS : clear to auscultation bilaterally
ABDOM: soft, nontender, nondistended, + bowel sounds
EXT: no cyanosis, clubbing, or edema
NEUROLOGIC: can't sit still
Septic shock (early)--resolved, never needed pressors--patient required 3 L of normal saline IV fluid bolus--etiology likely persistent right lower lobe infiltrate--gallbladder disease ruled out -- continue lactated Ringer's IV fluids, apprec
elevated work platform operator, consult ID, cultures neg to date-- repeat COVID is negative-- vancomycin/Zosyn de-escalated by ID to rocephen, zithromax-- CT scan of the abdomen and pelvis without acute findings- echocardiogram, lower extremity Dopplers are negative
Alcohol use--patient drinks 2 to 3 glasses of wine per night--will start MSAS protocol--continue thiamine and folic acid--watch for DTs
Hypothyroidism--continue levothyroxine
DVT prophylaxis--Lovenox
CODE STATUS--full code
transfer to IMU
Original Note:
Today's Communication/Plan
-
Awaiting input from ID consult, Awaiting Doppler US and Abdominal Ultrasound, Continue to monitor vital sign and fluids
Assessment / Plan
Assessment / Plan
Patient is a 53-year-old female
Septic shock--patient required 3 L of normal saline IV fluid in the ED with marginal blood pressures of 90s/50s after 3 L--etiology could be persistent right lower lobe infiltrate/, gallbladder disease with right upper quadrant pain, intra-abdominal
issues as leading theories--CXR and Chest CT persistent with RLL pneumonia-- patient is not hypoxic--Levophed discontinued, continue lactated Ringer's IV fluids, , ID consult, consider consult elevated work platform operator after ID input--awaiting culture results--
repeat COVID is negative--continue vancomycin/Zosyn for broad-spectrum coverage--apprec CT scan of the abdomen and pelvis; no significant findings--with viral illness, echocardiogram, abdominal and lower extremity Dopplers ordered
Alcohol use--patient drinks 2 to 3 glasses of wine per night--will start MSAS protocol--continue thiamine and folic acid
Hypothyroidism--continue levothyroxine
DVT prophylaxis--Lovenox
CODE STATUS--full code
Anticipated Discharge: > 48 hours
Subjective/Interval History
-
Date of Service: August 23, 2023
Patient is anxious and in moderate distress due to fever and chills. Complains of occasional pleuritic chest pain and difficulty sleeping overnight because of chills.
Objective Data
-
Labs:
Laboratory Results
08/23/23
03:17
WBC 9.0
Hgb 10.9 L
Hct 30.9 L
Plt Count 203 D
Sodium 136
Potassium 3.6
Chloride 110 H
Carbon Dioxide 22
BUN 4 L
Creatinine 0.6
Glucose 104 H
Calcium 8.6 D
Total Bilirubin 0.6
AST 23
ALT 19
Alkaline Phosphatase 108
Vital Signs:
Vital Signs
Temp Pulse Resp BP Pulse Ox
99.7 F 91 13 102/70 96
08/23/23 07:08 08/23/23 06:00 08/23/23 06:00 08/23/23 06:00 08/23/23 06:00
I&O
08/22/23 08/23/23 08/24/23
06:59 06:59 06:59
Intake Total 2300 / 2425 125 / 125
Output Total 1700 / 2700 1000 / 1000
Balance 600 / -275 -875 / -875
--- NOTE | 2023-08-23 09:20 | PTCARENOTE ---
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 Ox3, slightly anxious. Close to tears out of frustration due to her recurrent fevers preceded by intense rigors. Complains of headache, medicated with tylenol. Sinus tach on tele, rate into the 100's. 97% on RA, coarse
crackles in the RLL. Frequent coughing with deep breathing. SHe states she is constipated, complains of some ABD pain on palpation. Urinating without issue. IV sites intact. Call han within reach, pt makes needs known.
--- NOTE | 2023-08-23 10:05 | CM ---
Patient seen at bedside with physician. Patient states that she is shivering and that she lives with her in a 2 story home with no DME. Patient PCP is Dr. Chang and she has only met her once. Patient uses the [facility] on [address] Patient
states that she plans to go home with no needs.
Plan; home with no needs watch for VN
[2023-08-23] MEDS: MAGNESIUM SULFATE 50 IV (10:06)
--- NOTE | 2023-08-23 11:49 | CON.ID ---
Consultation
-
Date/Time Consultation Requested: August 23, 2023 0754
Date/Time Consultation Performed: August 23, 2023 1150
Requesting Provider: Dr. Penelope Hernandez
Performing Provider: Dr. Elli Walters
Reason for Consultation: Pneumonia failed outpatient therapy
Chief Complaint / Past History
Chief Complaint
Fever
History of Present Illness
History obtained from the patient as well as from her at bedside. She is a 53-year-old female with history of hypothyroidism who started feeling unwell since COVID19 infection August 10, 2023. Last COVID19 vaccination was a year ago.
Multiple family members also positive for COVID19 at the time. She was not treated. Symptoms did improve for 2 days, then she developed profound fatigue, headache, weakness, chest pressure, positive dry cough. she then started having high fevers
last week August 17 for which she came to the ER on 08/18. CT PE protocol showed no PE, positive mild right lower lobe opacity. She was discharged on Augmentin. However patient continues to have high fevers and therefore she came back to the ER
yesterday August 21. Temperature was 102.9. Temperature maximum was 103. CT of the abdomen pelvis showed right lower lobe pneumonia. She received IV fluid and ceftriaxone then became hypotensive. She was transferred to ICU. Blood pressure
improved without need for pressor. Cough is mostly dry. Still has pleuritic anterior chest pain. Positive frontal headache. No sinus congestion. No sore throat. No diarrhea. Had mild abdominal pain. No dysuria or flank pain. No rash. Last
travel was to [place] in June. Denies tick or insect exposure.
Past History
Additional Past Medical History:
Hypothyroidism
Anxiety
COVID infection 2020 and August 10, 2023
Allergy History:
No Known Allergies Allergy (Unverified 08/22/23 16:50)
Medications Reviewed: Yes
Current Antibiotics:
Vancomycin
Zosyn
Social History
Tobacco: Non-Smoker
Alcohol: Daily (3 glasses of wine)
Drug: None
Personal:
Employment: Employed (IT at [employer])
Family History
Family History: Not Pertinent
Review of Systems
Review of Systems
General: Fever, Chills and Change in Appetite
HEENT: Headache; Negative Stiff Neck, Sinus Problems or Pharyngitis
Respiratory: Dyspnea and Cough; Negative Sputum Production
Gasteroenterology: Other (no diarrhea)
Genital / Urological: Negative Dysuria or Flank Pain
Endocrine: Weakness
Musculoskeletal: Negative Arthralgias
Skin / Hair / Nails: Negative Rash
All systems: All other systems were reviewed and were negative
Vital Signs
Temp Pulse Resp BP Pulse Ox
99.7 F 101 16 100/59 93
08/23/23 07:08 08/23/23 09:01 08/23/23 09:01 08/23/23 09:01 08/23/23 10:40
Selected Entries
08/22/23
18:08
Temp 103 F H
Physical Exam
Physical Exam
Constitutional: No Acute Distress and Non-toxic
Eyes: No Conjunctival Hemorrhage and Sclera Anicteric
Oral: No Thrush
Cardiovascular: S1/S2 and Other (Tachycardic)
Pulmonary: Rales (right base crackles)
Gastrointestinal: Soft, Non Tender, Non Distended and Normal Bowel Sounds
Genito-Urinary: Negative CVA Tenderness
Extremities: Negative Edema
Musculoskeletal: Negative Joint Swelling or Joint Effusion
Neurological: AO x 3; Negative Meningeal Signs
Lab / Diagnostic Study Results
08/23/23 03:17
08/23/23 03:17
Abs Immat Gran (auto) 0.0 10^3/uL (0-0.05) 08/22/23 11:29
Absolute Neuts (auto) 7.8 10^3/uL (1.4-6.5) H 08/22/23 11:29
Absolute Lymphs (auto) 0.8 10^3/uL (1.2-3.4) L 08/22/23 11:29
Absolute Monos (auto) 0.9 10^3/uL (0.1-0.6) H 08/22/23 11:29
Absolute Basos (auto) 0.0 10^3/uL (0-0.2) 08/22/23 11:29
Immature Gran % 0.4 % (0-0.5) 08/22/23 11:29
Neutrophils % 81.2 % (42.2-75.2) H 08/22/23 11:
Lymphocytes % 8.5 % (20.5-51.1) L 08/22/23 11:29
Monocytes % 9.4 % (1.7-9.3) H 08/22/23 11:
Eosinophils % 0.2 % (0-6) 08/22/23 11:
Basophils % 0.3 % (0-2) 08/22/23 11:29
PT 15.7 Sec (11.4-14.6) H 08/22/23 19:24
INR 1.27 08/22/23 19:24
Lactic Acid Cancelled 08/22/23 22:07
Urine WBC 0-2 /HPF (0-5) 08/22/23 19:24
Ur Squamous Epith Cells 6-10 /LPF (Few) 08/22/23 19:24
Microbiology Results
Micro:
08/22/23 11:31 Blood Culture - Preliminary
Blood/Venous No Growth in 24 hours- Final report to follow
08/22/23 11:29 Blood Culture - Preliminary
Blood/Venous No Growth in 24 hours- Final report to follow
08/23/23 10:20 Nasal Screen MRSA (PCR) - Pending
Nose
08/22/23 12:55 Influenza Types A & B (LINETTE) - Final
Nasal Swab Negative for Influenza A & B, NAAT
Negative results must be combined with clinical observations
and patient history.
Nucleic Acid Amplification test (NAAT)performed on the
[employer] platform.
08/19/[address]: No evidence of pulmonary embolism. Mild right lower lobe pneumonia. Slightly more isolated 8mm pleural-based nodular opacity in the right lower lobe, likely part of the infectious process. However, follow-up would be recommended in
6 months.
08/22/23 CT a/p: Right lower lobe pneumonia. No CT evidence for an acute inflammatory process in the abdomen or pelvis.
Assessment / Plan
# R CAP
# Fevers
- Check urine legionella and pneumococcal antigen
- DC Vanco/Zosyn
- Deescalate abx to IV ceftriaxone and po doxycycline
- Follow temps
[2023-08-23] MEDS: POTASSIUM PHOSPHATE 259.090899999999976 MEQ IV (12:38)
[2023-08-23] MEDS: ZOSYN IV (13:29)
[2023-08-23] MEDS: VIBRAMYCIN 100 MG PO ×2 (14:06→19:57)
[2023-08-23] MEDS: ROCEPHIN 2000 MG IV (14:21)
[2023-08-23] MEDS: STERILE WATER FOR INJECTION 20 ML IV (14:21)
[2023-08-23] MEDS: ZOFRAN 4 MG IV (16:11)
[2023-08-23] MEDS: LOVENOX 40 MG SC (18:27)
--- NOTE | 2023-08-23 20:00 | PTCARENOTE ---
rec`d pt at 1900 AAOx3. pt resting in bed. MSAS continued. SR-ST on monitor. _pulses. 99.3 temp. prns given for fever and discomfort.coarse RLL BS. RA POX 94-97%. no BM. pt assist x1. RT AC 20 and Rt hand 22 flushed and patent. LR running. call
han in reach. safe environment maintained. pt`s at bedside.
[2023-08-24] VITALS (15 sets, daily range): BP systolic 88–121; BP diastolic 53–74; BMI 24.9
[2023-08-24] MEDS: ZOFRAN 4 MG IV ×2 (00:10→08:24)
[2023-08-24] MEDS: TORADOL 15 MG IV (00:16)
[2023-08-24] MEDS: LR 1000 IV ×2 (00:21→17:56)
[2023-08-24] MEDS: TYLENOL 650 MG PO ×3 (04:48→19:14)
[2023-08-24] MEDS: SYNTHROID 75 MCG PO (04:49)
--- NOTE | 2023-08-24 07:14 | W.PN.INTV ---
Today's Communication / Plan
Recommendations
Continue antibiotics per ID
Out of bed to chair, ambulate
Tylenol as needed
Would recommend CT chest in 3 months to confirm resolution of right lower lobe process
Information left in chart
Alcohol abstinence
We will sign off. Please call with questions
Assessment
-
53-year-old female with recent COVID 08/09, persistent pleurisy, fatigue, malaise had ED visit 08/[address] angiogram. Right lower lobe pneumonia identified, started on Augmentin. Persistent fevers to 102.9, found to be hypotensive. Given
ceftriaxone, started on IV fluids. Patient admitted to ICU due to persistent hypotension
Hypotension, suspected secondary to sepsis
Improved following fluids
Right lower lobe pneumonia
Crackles on exam
Recent COVID 08/10/2023
Tachycardia
Anemia, likely dilutional
Mild hypercalcemia
Presyncopal symptoms
Nonspecific abdominal pain, waxing and waning over the last few months
Normal abdominal CT imaging
Conditions present prior to admission
Hypothyroidism
Anxiety disorder
History of walking pneumonia third decade
Chronic rhinitis
History of sinus infections
Moderate alcohol use
2 to 3 glasses of wine a day
Plan/recommendations
At this time, patient subjectively is improved, less splinting on exam, able to take deeper breaths
Less shortness of breath
Extremities are warm, pulses are intact
Fever curve improving but Tmax 101.7
Most recent blood pressure systolic pressure in the 100s, patient is asymptomatic
Echocardiogram, Doppler unremarkable, abdominal ultrasound unremarkable
Moving forward
Continue with empiric antibiotics for community-acquired pneumonia. Recent ED visit noted
Zosyn/vancomycin transition to ceftriaxone/doxycycline. ID following
Abdominal imaging does suggest more consolidation than recent CT chest
Blood cultures negative to date
Influenza and COVID-negative
Follow fever curve, continue with Tylenol
Right upper quadrant pain noted on exam, resolved
Abdominal CT without acute findings
Patient describes no menses for 11 months and had episode over the last week.
Patient denies any weight loss
She describes chronic constipation
Lipase normal abdominal ultrasound pending
Alcohol use noted
Discontinue IV fluids
Tolerating diet
Continue thiamine/folate
Follow-up for withdrawal electrolyte abnormalities noted. Replete
Magnesium, potassium and phosphorus
Would recommend CT chest in 3 months to confirm resolution of right lower lobe process
Reviewed with and patient. Information left in chart
DVT prophylaxis: Continue pharmacological and mechanical
GI prophylaxis: No indication
Reviewed with the primary service, critical care nursing, respiratory care
We will sign off. Please call with questions
Subjective Dataa
Subjective Data
Date of Service:
Date of Service: August 24, 2023
Subjective:
Patient is feeling much better. She has mild productive cough yellow mucus, no blood. She denies chest pain. She is able to take a deeper breath without issues. Fever curve seems to be improving. at bedside. Denies nausea, abdominal
pain, diarrhea
Objective Data
Data Reviewed
Vital Signs / I&O / Oxygen:
Vital Signs
Temp Pulse Resp BP Pulse Ox
101 F H 78 15 91/53 96
08/24/23 05:21 08/24/23 06:00 08/24/23 06:00 08/24/23 06:00 08/23/23 20:00
Intake and Output
08/23/23 08/24/23 08/25/23
06:59 06:59 06:59
Intake Total 2300 / 2425 2310 / 2310
Output Total 1700 / 2700 3650 / 3650
Balance 600 / -275 -1340 / -1340
SaO2 96
Nasal Cannula flow liters per 2
minute
Physical Exam
General: Comfortable
HEENT: Normocephalic and Anicteric
Cardiovascular: S1-S2, Regular Rhythm, Murmur (n) and Rub (n)
Respiratory: Wheeze (n), Crackles (n), Rhonchi (n), Non-Labored Respirations, Egophony (Mild right base) and Other (Coughing with deep breathing)
GI: Soft, Non Distended and Non Tender
Neurology: Awake, Alert and No Motor Deficits (Able to sit up without assistance)
Skin: Good Color, Cyanosis (n), Jaundice (n) and Rash (n)
Labs/Micro/Reports
Microbiology
08/23/23 14:42 Urine Streptococcus pneumoniae Antigen (M - Final
Negative for Streptococcus pneumoniae antigen.
A negative result does not exclude infection with
Streptococcus pneumoniae. Clinical correlation is
recommended.
08/23/23 14:42 Urine Legionella Urinary Antigen - Final
Negative for Legionella pneumophila Serogroup 1 antigen.
A negative result does not rule out the possiblity of
Legionella infection due to other serogroups or species of
Legionella. Clinical correlation is recommended.
08/23/23 10:20 Nose Nasal Screen MRSA (PCR) - Final
MRSA not detected - performed by PCR methodology.
08/22/23 11:31 Blood/Venous Blood Culture - Preliminary
No Growth in 24 hours- Final report to follow
08/22/23 11:29 Blood/Venous Blood Culture - Preliminary
No Growth in 24 hours- Final report to follow
08/22/23 12:55 Nasal Swab Influenza Types A & B (LINETTE) - Final
Negative for Influenza A & B, NAAT
Negative results must be combined with clinical observations
and patient history.
Nucleic Acid Amplification test (NAAT)performed on the
[employer] platform.
[2023-08-24] MEDS: VIBRAMYCIN 100 MG PO ×2 (07:32→19:56)
[2023-08-24] MEDS: THIAMINE INJECTION 200 MG IV ×2 (07:32→19:55)
[2023-08-24] MEDS: LEXAPRO 10 MG PO (07:32)
[2023-08-24] MEDS: VITAMIN C 500 MG PO (07:32)
[2023-08-24 07:33] LABS: % Basophils 0.4 % (0-2); % Eosinophils 1.3 % (0-6); % Immature Granulocytes 0.6 % (0-0.5); % Lymphocytes 16.3 % (20.5-51.1); % Monocytes 12.9 % (1.7-9.3); % Neutrophils 68.5 % (42.2-75.2); Absolute Eosinophils 0.1 10^3/uL (0-0.7); Absolute Lymphocytes 1.2 10^3/uL (1.2-3.4); Absolute Monocytes 0.9 10^3/uL (0.1-0.6); Absolute Neutrophils 4.9 10^3/uL (1.4-6.5); Hematocrit 29.9 % (37.0-47.0); Hemoglobin 10.9 g/dL (12.0-16.0); Mean Corp Hgb Conc. 36.5 g/dL (33.0-37.0); Mean Corpuscular Hgb 32.1 pg (27.0-31.0); Mean Corpuscular Volume 87.9 fL (81.0-99.0); Mean Platelet Volume 9.5 fL (7.4-10.4); Nucleated Red Blood Cells % 0 %; Platelet Count 228 10^3/uL (130-400); Red Cell Dist. Width 11.7 % (11.5-14.5); White Blood Cell Count 7.1 10^3/uL (4.8-10.8)
[2023-08-24] MEDS: FOLVITE 1 MG PO (07:33)
[2023-08-24 07:49] LABS: ALT (SGPT) 23 U/L (0-35); AST (SGOT) 23 U/L (14-36); Alkaline Phosphatase 119 U/L (38-126); Blood Urea Nitrogen 6 mg/dl (7-17); Calcium 9.1 mg/dl (8.4-10.2); Carbon Dioxide 26 mmol/L (22-30); Chloride 109 mmol/L (98-107); Estimated Creatinine Clearance 98 ml/min; Glucose 96 mg/dl (70-99); Potassium 3.7 mmol/L (3.5-5.1); Sodium 139 mmol/L (135-145); Total Bilirubin 0.4 mg/dl (0.2-1.3); Total Protein 5.6 g/dl (6.3-8.2); eGFR > 60.00
--- NOTE | 2023-08-24 08:32 | PTCARENOTE ---
Pt received in bed @ 0700. AAOx3. MSAS 1 for HR in 80s. Temperature 98.5F. Pt with complaint of frontal headache; PRN Tylenol administered. SaO2 97% on room air. Diminished breath sounds. 900ml witnessed on incentive spirometer. Dry cough, pt states
it has been productive overnight. SaO2 97% on room air. Sinus rhythm/Sinus tach on monitor tech. HR 80s at rest, rises to 110 with ambulation. Palpable peripheral pulses. Pt with nausea after eating breakfast. PRN Zofran administered. No bowel
movement observed. Voided 700ml george/yellow urine. LR infusing @ 60 ml/hr.
--- NOTE | 2023-08-24 09:49 | W.PN.HOSP.TC ---
Addendum entered and electronically signed by Penelope Hernandez MD 08/24/23 19:19:
I saw and evaluated the patient independently. I reviewed the resident�s note and agree with findings and plan as documented by Dr. Hutson.
GENERAL: well developed, well nourished, female much improved with kinetic movements
HEENT: NC/AT
HEART: regular rate and rhythm, +S1, +S2, tachycardic
LUNGS : crackles/rhonchi right base
ABDOM: soft, nontender, nondistended, + bowel sounds
EXT: no cyanosis, clubbing, or edema
NEUROLOGIC: grossly intact
Septic shock (early)--resolved, never needed pressors--patient required 3 L of normal saline IV fluid bolus--etiology likely persistent right lower lobe infiltrate--gallbladder disease ruled out -- stop lactated Ringer's IV fluids, apprec
coding consultant/ID, cultures neg to date-- repeat COVID is negative-- vancomycin/Zosyn de-escalated by ID to rocephen, zithromax-- CT scan of the abdomen and pelvis without acute findings- echocardiogram, lower extremity Dopplers are negative
Alcohol use--patient drinks 2 to 3 glasses of wine per night--cont MSAS protocol--continue thiamine and folic acid--no evidence of DTs
Hypothyroidism--continue levothyroxine
DVT prophylaxis--Lovenox
CODE STATUS--full code
transfer to tele
anticipate home tomorrow
Original Note:
Today's Communication/Plan
-
Continue to follow temperatures--waiting for patient to be transferred to IMU
Assessment / Plan
Assessment / Plan
Patient is a 53-year-old female
Septic shock--patient required 3 L of normal saline IV fluid in the ED with marginal blood pressures of 90s/50s after 3 L--etiology could be persistent right lower lobe infiltrate/, gallbladder disease with right upper quadrant pain, intra-abdominal
issues as leading theories--CXR and Chest CT persistent with RLL pneumonia--ABD/pelvic CT ultrasound: Normal, no signs of gallbladder or pancreatic hepatic abnormality, patient is not hypoxic--repeat COVID is negative---Levophed discontinued,
continue lactated Ringer's IV fluids, , apprec ID consult- blood culture: Negative--urine legionella and pneumococcal antigen: negative --MRSA screen negative--per ID consult, vancomycin/Zosyn continue, oral doxycycline and IV ceftriaxone
started--apprec CT scan of the abdomen and pelvis; no significant findings--with viral illness, echocardiogram, lower extremity Doppler: Normal
Alcohol use--patient drinks 2 to 3 glasses of wine per night--will start MSAS protocol--continue thiamine and folic acid
Hypothyroidism--continue levothyroxine
DVT prophylaxis--Lovenox
CODE STATUS--full code
Anticipated Discharge: 24 - 48 hours
Subjective/Interval History
-
Date of Service: August 24, 2023
Had some fevers overnight.patient feeling much better in the morning. Was able to take a shower in the morning. Complains of headache; subsequently drank coffee but feels nauseous after that. Has not had bowel movements during the past 2 days.
Objective Data
-
Labs:
Laboratory Results
08/24/23
07:24
WBC 7.1
Hgb 10.9 L
Hct 29.9 L
Plt Count 228
Sodium 139
Potassium 3.7
Chloride 109 H
Carbon Dioxide 26
BUN 6 L
Creatinine 0.6
Glucose 96
Calcium 9.1
Total Bilirubin 0.4
AST 23
ALT 23
Alkaline Phosphatase 119
Vital Signs:
Vital Signs
Temp Pulse Resp BP Pulse Ox
98.6 F 83 18 115/68 97
08/24/23 09:15 08/24/23 08:00 08/24/23 08:00 08/24/23 08:00 08/24/23 08:22
I&O
08/23/23 08/24/23 08/25/23
06:59 06:59 06:59
Intake Total 2300 / 2425 2310 / 2370 660 / 660
Output Total 1700 / 2700 3650 / 3650 700 / 700
Balance 600 / -275 -1340 / -1280 -40 / -40
Review of Systems
-
History Source: Patient
All other systems: Reviewed and negative
Constitutional: Reports Night Sweats and Chills
Neuro: Reports Headache
Psych: Reports Anxious
Physical Exam
-
General: Well Developed, Well Nourished and No Apparent Distress
HEENT: Normocephalic and Atraumatic
Respiratory: Crackles
Cardiac: Regular Rhythm and S1/S2
GI: Nontender, Nondistended and Normal Bowel Sounds
Genito-urinary: No Costovertebral Tender
Musculoskeletal: No Clubbing and No Cyanosis
Skin: Warm
Neuro: Awake, Alert and Oriented
Hematologic / Lymphatic: No Lymphadenopathy
Psych: Anxious
--- NOTE | 2023-08-24 13:04 | CM ---
Patient seen this am with patient and physician. Patient states she feels much better. Patient for possible transition to Tele per physician. Patient anticipates possible discharge tomorrow if physician assessment agrees. CM will continue to
follow for discharge planning needs.
Plan; home with no needs anticipated.
--- NOTE | 2023-08-24 13:08 | W.PN.ID1 ---
Date of Service
Date of Service: August 24, 2023
Today's Communication
- continue IV ceftriaxone and po doxycycline today
- tomorrow will transition to cefdinir 300 mg PO BID along with the doxycycline 100 mg PO BID to complete a 7 day course 08/22-08/28
- Follow up with PCP
Assessment / Plan
# Right Sided CAP
# Fevers
- urine legionella and pneumococcal antigens both negative
- continue IV ceftriaxone and po doxycycline today
- tomorrow will transition to cefdinir 300 mg PO BID along with the doxycycline 100 mg PO BID to complete a 7 day course 08/22-08/28
- Follow up with PCP
Chief Complaint
-: Pneumonia
Subjective / Review of Systems
fevers resolving
bp stable
no further leukocytosis or L shift
cr stable
lactic acid was 1.1
I feel so much better - like 80% better
Vital Signs / Physical Exam
Vital Signs
Vital Signs
Temp Pulse Resp BP Pulse Ox
98.4 F 81 18 107/65 95
08/24/23 11:00 08/24/23 12:00 08/24/23 10:00 08/24/23 10:58 08/24/23 10:00
Physical Exam
Constitutional: No Acute Distress
Cardiovascular: Regular Rate and S1/S2; Negative Murmur or Rub
Pulmonary: Clear and Symmetric; Negative Wheezes or Rales
Gastrointestinal: Soft, Non Tender, Non Distended and Normal Bowel Sounds
Skin: Warm and Dry; Negative Rash or Jaundice
Objective Data
Lab Data
Lab Results
08/24/23 07:24
08/24/23 07:24
PT 15.7 Sec (11.4-14.6) H 08/22/23 19:24
INR 1.27 07/01/24 19:24
APTT 47.8 Sec (23.4-35.0) H 08/22/23 19:24
Estimated Creat Clear 98 ml/min 08/24/23 07:24
Lactic Acid Cancelled 08/22/23 22:07
Total Bilirubin 0.4 mg/dl (0.2-1.3) 08/24/23 07:24
GGT 55 U/L (12-43) H 08/22/23 19:24
AST 23 U/L (14-36) 08/24/23 07:24
ALT 23 U/L (0-35) 08/24/23 07:24
Alkaline Phosphatase 119 U/L (38-126) 08/24/23 07:24
Most recent labs reviewed.
Micro Results:
08/22/23 11:31 Blood Culture - Preliminary
Blood/Venous No Growth in 48 hours- Final report to follow
08/22/23 11:29 Blood Culture - Preliminary
Blood/Venous No Growth in 48 hours- Final report to follow
08/23/23 14:42 Streptococcus pneumoniae Antigen (M - Final
Urine Negative for Streptococcus pneumoniae antigen.
A negative result does not exclude infection with
Streptococcus pneumoniae. Clinical correlation is
recommended.
08/23/23 14:42 Legionella Urinary Antigen - Final
Urine Negative for Legionella pneumophila Serogroup 1 antigen.
A negative result does not rule out the possiblity of
Legionella infection due to other serogroups or species of
Legionella. Clinical correlation is recommended.
08/23/23 10:20 Nasal Screen MRSA (PCR) - Final
Nose MRSA not detected - performed by PCR methodology.
08/22/23 12:55 Influenza Types A & B (LINETTE) - Final
Nasal Swab Negative for Influenza A & B, NAAT
Negative results must be combined with clinical observations
and patient history.
Nucleic Acid Amplification test (NAAT)performed on the
[employer] platform.
08/19/[address]: No evidence of pulmonary embolism. Mild right lower lobe pneumonia. Slightly more isolated 8mm pleural-based nodular opacity in the right lower lobe, likely part of the infectious process. However, follow-up would be recommended in
6 months.
08/22/23 CT a/p: Right lower lobe pneumonia. No CT evidence for an acute inflammatory process in the abdomen or pelvis.
[2023-08-24] MEDS: ROCEPHIN 2000 MG IV (13:21)
[2023-08-24] MEDS: STERILE WATER FOR INJECTION 20 ML IV (13:21)
--- NOTE | 2023-08-24 16:21 | PTCARENOTE ---
Received pt from ICU. Report from Ziyad RN. Pt awake, alert and oriented x3. Assessment unchanged, Pt VSS, 95% on RA. Pt NSR on tele, Pt oriented to room, call han within reach, plan of care continues.
[2023-08-24] MEDS: LOVENOX 40 MG SC (17:43)
[2023-08-25 03:27] VITALS: BP 115/73
[2023-08-25] MEDS: SYNTHROID 75 MCG PO (05:57)
[2023-08-25] MEDS: TYLENOL 650 MG PO (07:04)
[2023-08-25 07:30] VITALS: BP 97/66
[2023-08-25] MEDS: THIAMINE INJECTION 200 MG IV (08:05)
[2023-08-25] MEDS: VITAMIN C 500 MG PO (08:06)
[2023-08-25] MEDS: OMNICEF 300 MG PO (08:07)
[2023-08-25] MEDS: VIBRAMYCIN 100 MG PO (08:07)
[2023-08-25] MEDS: LEXAPRO 10 MG PO (08:07)
[2023-08-25] MEDS: FOLVITE 1 MG PO (08:07)
[2023-08-25 11:14] VITALS: BP 104/72
--- NOTE | 2023-08-25 14:15 | W.DCSUMMARY ---
Addendum entered and electronically signed by Penelope Hernandez MD 08/25/23 16:30:
Read, reviewed, and agree. See same day progress note for additional details. Time spent coordinating care, DC planning, review of DC plan of care with resident, transition of care, review of records in EMR, med rec, consults, notes, d/w
consultants, nursing, family, and CM = 40 minutes.
Clarification: pt was ordered levophed but never actually required pressors. Septic Shock resolved with IVF alone.
Original Note:
Discharge Summary
Discharge Data
Date of Admission: 08/22/23
Date of Discharge: 08/25/23
Total time spent discharging patient (in min): 40
-
Pending Results: No
Hospital Course
Patient is a 53-year-old female who tested positive for COVID on August 10, 2023. She felt better from her COVID symptoms within 2 days; however, patient felt significantly fatigued since that time. She had started developing fevers and chills
starting Tuesday evening prior to admission and had spent all day in bed. She stated that it was hard to breathe, her head hurt, and had chest pains and dry cough. She was seen by her primary care physician the following day and was
sent to the ER. Workup at that time showed right lower lobe pneumonia and the patient was placed on Augmentin therapy. She stated that she took 5 pills of her course but did not feel any better. Her symptoms worsened over the weekend and she
developed fever and chills. After follow-up with PCP, she was referred to ED. On p/e, crackles could be heard at the base of the right lung. Workup found her to be febrile with hypotension requiring at least 3 L of IV fluids and chest x-ray
consistent with a right lower lobe pneumonia. Patient was admitted to the intensive care unit.
Problem #1: Septic shock: This is the patients admitting diagnosis. Patient received lactate ringer IV fluids and Levophed for blood pressure support. Vancomycin/Zosyn was started for broad-spectrum coverage. Given history of alcohol use, patient
was placed on [facility] protocol. As part of fever workup, chest x-ray and chest CT and abd/pelvic CT scan were performed. CXR was consistent with persistent right lower lobe pneumonia. Echocardiography was performed to evaluate possible viral
infection, which was normal. Unremarkable abdominal ultrasound and Doppler ruled out gall bladder/ pancreatic disease. During the first 24 hours of admission in the ICU, patient developed intermittent fevers but became hemodynamically stable. Per
ID consult, Vanco/Zosyn was discontinued and IV ceftriaxone and oral doxycycline was started and urine legionella and pneumococcal antigen were checked which came back negative. Subsequent to resolution of patient's chest pain and fever the
following day, patient was cleared by Infectious Disease service to continue oral antibiotic therapy for a 7-day course and follow-up with PCP. Patient was regularly visited by freelance art director during ICU stay.
Patient is stable to be discharged and is in good clinical condition. Instructions for continuing antibiotic treatment and following up with PCP were given to the patient before discharge.
Discharge Plan
-
Patient Disposition: Home (Routine Discharge)
Discharge Diagnosis/Procedures: Right lower lobe pneumonia, fever
Condition: Good
Diet: As tolerated
Activity: No restrictions
Driving Restrictions: As prior to admission
Bathing Restrictions: None
Referrals:
Rizwana Espinosa MD [Active] -
([address] chest without contrast
Follow-up with pulmonary at that time)
Vanessa Lopez MD [Family Provider] - in less than 1 week
Prescriptions:
New
cefdinir 300 mg Capsule
300 mg PO Q12 Qty: 14 0RF
doxycycline hyclate 100 mg Capsule
100 mg PO Q12 Qty: 14 0RF
acetaminophen 325 mg Tablet
650 mg PO Q4HPRN PRN (Reason: mild pain/ fever>100.5F) Qty: 0 0RF
benzonatate 100 mg Capsule
200 mg PO TIDPRN PRN (Reason: cough) Qty: 20 0RF
Continued
levothyroxine 75 mcg Tablet
75 mcg PO DAILY
ascorbic acid (vitamin C) [Vitamin C] 250 mg Tablet
500 mg PO DAILY
ibuprofen [Motrin IB] 200 mg Tablet
400 mg PO TIDPRN PRN (Reason: mild pain)
escitalopram oxalate 10 mg Tablet
10 mg PO DAILY
Hair, Skin and Nails (biotin) 10,000 mcg Tablet,Chewable
20,000 mcg PO DAILY
Colace
4 gummy PO DAILYPRN PRN (Reason: constipation)
Immune Health Supplement tablet
1 tab PO DAILYPRN PRN (Reason: supplement)
Patient Comments:
08/22/2023, pt. states that there is 1 gram of vitamin C, some zinc, and other vitamins in this supplement.
Metamucil capsule
2 cap PO DAILYPRN PRN (Reason: constipation)
Women's Multivitamin Gummies
2 gummy PO DAILY
Discontinued
amoxicillin-pot clavulanate 875-125 mg tablet
1 tab PO BID 5 Days Qty: 10 0RF
Patient Comments:
08/22/2023, filled on 08/19/2023 and instructed to take one tablet BID for 5 days; pt. has taken 5 pills so far per pt.
acetaminophen [Tylenol Extra Strength] 500 mg Tablet
1,000 mg PO Q6H PRN (Reason: mild pain)
Discharge Orders:
Discharge Patient (As Directed); Ordered 08/25/23
Ordered By: Pratima Hutson
Discharge Date and Time
Discharge Date/Time: 08/25/23 11:39
Print Language: MONEGASQUE
--- NOTE | 2023-08-25 16:17 | W.PN.HOSP.TC ---
Addendum entered and electronically signed by Penelope Hernandez MD 08/25/23 16:31:
I saw and evaluated the patient independently. I reviewed the resident�s note and agree with findings and plan as documented by Dr. Hutson.
GENERAL: well developed, well nourished, female much improved
HEENT: NC/AT
HEART: regular rate and rhythm, +S1, +S2, tachycardic
LUNGS : crackles/rhonchi right base
ABDOM: soft, nontender, nondistended, + bowel sounds
EXT: no cyanosis, clubbing, or edema
NEUROLOGIC: grossly intact
Septic shock (early)--resolved, never needed pressors--patient required 3 L of normal saline IV fluid bolus--etiology likely persistent right lower lobe infiltrate--gallbladder disease ruled out -- stop lactated Ringer's IV fluids, apprec
directory compiler/ID, cultures neg to date-- repeat COVID is negative-- vancomycin/Zosyn de-escalated by ID to rocephen, zithromax-- CT scan of the abdomen and pelvis without acute findings- echocardiogram, lower extremity Dopplers are negative
Alcohol use--patient drinks 2 to 3 glasses of wine per night--cont [facility] protocol--continue thiamine and folic acid--no evidence of DTs
Hypothyroidism--continue levothyroxine
DVT prophylaxis--Lovenox
CODE STATUS--full code
d/c
Original Note:
Today's Communication/Plan
-
Given resolution of fevers and clinical improvement, will plan for discharge.
Assessment / Plan
Assessment / Plan
Patient is a 53-year-old female
Initially admitted with septic shock--patient required 3 L of normal saline IV fluid in the ED with marginal blood pressures of 90s/50s after 3 L--etiology most likely persistent right lower lobe infiltrate--CXR and Chest CT persistent with RLL
pneumonia--ABD/pelvic CT ultrasound: Normal, no signs of gallbladder or pancreatic hepatic abnormality,--repeat COVID is negative---Levophed discontinued, continue lactated Ringer's IV fluids, blood culture: Negative--urine legionella and
pneumococcal antigen: negative --MRSA screen negative --apprec CT scan of the abdomen and pelvis; no significant findings--with viral illness, echocardiogram, lower extremity Doppler: Normal--apper ID consult: patient can switch to oral doxycycline
and oral cefdinir for a 7-day course and follow-up with PCP.
Alcohol use--patient drinks 2 to 3 glasses of wine per night--continue [facility]AS protocol--continue thiamine and folic acid
Hypothyroidism--continue levothyroxine
DVT prophylaxis--Lovenox
CODE STATUS--full code
Anticipated Discharge: Today
Subjective/Interval History
-
Date of Service: August 25, 2023
Patient feels good. Does not complain of chest pain anymore. Did not have fever/chills overnight and has been using spirometer consistently.
Objective Data
-
Vital Signs:
Vital Signs
Temp Pulse Resp BP Pulse Ox
98.5 F 83 20 104/72 96
08/25/23 11:14 08/25/23 11:14 08/25/23 11:14 08/25/23 11:14 08/25/23 11:14
I&O
08/24/23 08/25/23 08/26/23
06:59 06:59 06:59
Intake Total 2310 / 2370 1320 / 1320
Output Total 3650 / 3650 1200 / 1200
Balance -1340 / -1280 120 / 120
Review of Systems
-
History Source: Patient
All other systems: Reviewed and negative
Physical Exam
-
General: Well Developed, Well Nourished and No Apparent Distress
HEENT: Normocephalic and Atraumatic
Respiratory: Crackles
Cardiac: Regular Rhythm and S1/S2
GI: Soft, Nontender, Nondistended and Normal Bowel Sounds
Rectal: Brown
Genito-urinary: No Costovertebral Tender
Musculoskeletal: No Clubbing, No Cyanosis and No Edema
Skin: Warm and Dry
Neuro: Awake, Alert, Oriented, AO x 3, No Motor Deficits and No Sensory Deficits
Hematologic / Lymphatic: No Lymphadenopathy
Psych: Calm
Data Reviewed
-
Total Time Spent with Patient (in minutes): 45
== END 2023-08-25 11:39 | disposition home or self-care (01) | DRG 871 ==
LOC: 4 EAST ACU 16:07
PROVIDERS: ADMITTING PHYSICIAN Internal Medicine; CONSULT PHYSICIAN Internal Medicine Critical Care Medicine; CONSULT PHYSICIAN Internal Medicine Infectious Disease; EMERGENCY PHYSICIAN Emergency Medicine; FAMILY PHYSICIAN Family Medicine
DX: A41.9 Sepsis, unspecified organism (principal); J18.9 Pneumonia, unspecified organism; R65.21 Severe sepsis with septic shock; E03.9 Hypothyroidism, unspecified; J45.909 Unspecified asthma, uncomplicated; E83.52 Hypercalcemia; J31.0 Chronic rhinitis; K59.09 Other constipation; F41.9 Anxiety disorder, unspecified; D64.9 Anemia, unspecified; Z79.890 Hormone replacement therapy; Z86.16 Personal history of COVID-19; Z11.52 Encounter for screening for COVID-19
CPT/HCPCS: 71046; 74177; 76700; 80053; 80306; 81003; 81015; 82010; 82077; 82977; 83605; 83690; 83735; 84100; 85025; 85027; 85610; 85730; 87040; 87449; 87502; 87641; 87811; 87899; 93005; 93306; 93970; 93975; 94640; 96361; 96374; 96375; 99285; Q9967

== ENCOUNTER → 2023-12-26 08:54 | Outpatient (REF) | payer BC, SELFPAY | LOC: RAD 08:54 | PROVIDERS: ATTENDING PHYSICIAN Nurse Practitioner Adult Health; FAMILY PHYSICIAN Family Medicine | DX: J18.9 Pneumonia, unspecified organism (principal); R93.89 Abnormal findings on diagnostic imaging of other specified body structures; R91.1 Solitary pulmonary nodule | CPT/HCPCS: 71250 ==

== ENCOUNTER → 2024-06-28 15:35 | Outpatient (REF) | payer BC, SELFPAY | LOC: WDC 15:35 | PROVIDERS: ATTENDING PHYSICIAN Obstetrics & Gynecology; FAMILY PHYSICIAN Family Medicine | DX: Z12.31 Encounter for screening mammogram for malignant neoplasm of breast (principal) | CPT/HCPCS: 77063; 77067 ==